=== PATIENT | female | born 1990 | race Caucasian/White ===

== ENCOUNTER 2021-03-20 08:29 | Emergency (ER) | payer OTHER, SELFPAY ==
[2021-03-20 08:43] VITALS: BP 127/71; PULSE 75; RESP 16; TEMP 36.9; O2SAT 99
--- NOTE | 2021-03-20 09:13 | ED.URI ---
HPI - URI/Sore Throat General Chief Complaint: Upper Respiratory Infection Stated Complaint: Cough, runny nose, sore throat Time Seen by Provider: 03/20/21 08:53 Source: patient and RN notes reviewed Mode of arrival: ambulatory Limitations: no limitations History of Present Illness HPI Narrative: Patient presents today complaining of a cough and sore throat x3 days. Denies any additional symptoms to include fever and shortness of breath. No history of asthma or COPD. She has been taking Mucinex without much relief. She currently rates her pain 6/10. History of sleep apnea. She is a non-smoker. Daughter presents today with her with similar symptoms. Son with RSV at home. MD elicited complaint: cough and sore throat Related Data Home Medications Medication Instructions Recorded Confirmed levothyroxine 112 mcg PO DAILY 03/20/21 03/20/21 norgestimate-ethinyl estradiol 1 tablet PO DAILY 03/20/21 03/20/21 [Jacquelin] spironolactone 100 mg PO DAILY 03/20/21 03/20/21 Allergies Allergy/AdvReac Type Severity Reaction Status Date / Time No Known Allergies Allergy Verified 03/20/21 09:03 Review of Systems Review of Systems: CONSTITUTIONAL: Denies body aches, fever, chills, or sweats. EYES: Denies visual changes, redness, or discharge. ENT: Denies rhinorrhea, congestion, or otalgia.+ Sore throat CARDIOVASCULAR: Denies chest pain, palpitations, or edema. RESPIRATORY: Denies dyspnea.+ Cough GASTROINTESTINAL: Denies abdominal pain, nausea, vomiting, or diarrhea. GENITOURINARY: Denies dysuria or hematuria. SKIN: Denies rash, itching, or wounds. MUSCULOSKELETAL: Denies back pain, joint pain, or myalgia. NEUROLOGIC: Denies headache, numbness, tingling, or weakness. PSYCH: Denies depression or anxiety. [facility] Past Medical History Medical History (Updated 03/20/21 @ 09:30 by Jazmyn Guerin, RYAN, ) Obstructive sleep apnea Surgical History Surgical History (Updated 03/20/21 @ 09:15 by Jazmyn Guerin, RYAN, ) Hx of tonsillectomy Comments At time of signature, I have reviewed and agree with nursing past medical, surgical, social and family history unless otherwise noted. Please see nursing chart for further information. There is no relevant family history pertinent to the presenting complaint Exam Narrative: GENERAL: Well-appearing, well-nourished, and in no acute distress. HEAD: Normocephalic, atraumatic. EYES: EOMI. No redness or drainage. Conjunctivae normal. ENT: Mucous membranes pink and moist. Nares clear. No rhinorrhea. TMs normal bilaterally. Throat normal. Uvula midline. NECK: Normal AROM. Supple. No lymphadenopathy. CHEST: No respiratory distress. Clear to auscultation. HEART: Regular rate and rhythm. No murmur appreciated. Normal peripheral pulses. EXTREMITIES: Normal range of motion. No edema. SKIN: Warm, dry, no rash. Capillary refill normal. Normal skin turgor. NEURO: No focal deficits. Alert and oriented x3. Gait steady. PSYCH: Normal affect. No signs of depression or anxiety. Course Vital Signs Vital signs: Vital Signs Temperature 98.5 F 03/20/21 08:43 Pulse Rate 75 03/20/21 08:43 Respiratory Rate 16 03/20/21 08:43 Blood Pressure 127/71 03/20/21 08:43 Pulse Oximetry 99 03/20/21 08:43 Temperature 98.5 F 03/20/21 08:43 Pulse Rate 75 03/20/21 08:43 Respiratory Rate 16 03/20/21 08:43 Blood Pressure 127/71 03/20/21 08:43 Pulse Oximetry 99 03/20/21 08:43 Reviewed. Pt has been instructed to follow up with her PCP regarding her elevated blood pressure today. MDM - URI/Sore Throat Differential Diagnosis Differential diagnosis: Likely upper respiratory infection, viral infection, pharyngitis and other (Strep throat) Lab Data Attestation: I reviewed the patient's lab results. Labs: Strep Screen Presumptive Negative *(Reference Range: Negative)* Critical Care Time Critical Care Time Cr
== END 2021-03-20 09:33 | disposition home or self-care (01) ==
PROVIDERS: Emergency Provider Nurse Practitioner; PCP Internal Medicine
DX: J06.9 Acute upper respiratory infection, unspecified (principal); G47.33 Obstructive sleep apnea (adult) (pediatric)
CPT/HCPCS: 87081; 87880; 99213; G0463